=== PATIENT | female | born 1955 | race Caucasian/White ===

== ENCOUNTER 2017-01-08 18:04 | Emergency (ER) | payer MEDICAID ==
[2017-01-08 18:09] VITALS: TEMP 97.8; O2SAT 98
--- NOTE | 2017-01-08 18:17 | ED PDOC ---
HPI: General Adult Time Seen by Provider: 01/08/17 18:10 Chief Complaint (Nursing): Dizziness/Lightheaded Chief Complaint (Provider): Dizziness History Per: Patient History/Exam Limitations: no limitations Onset/Duration Of Symptoms: Days (330pm) Current Symptoms Are (Timing): Still Present Additional Complaint(s): Pt. with dizziness like room spinning and fuzziness when sitting still. Pt. has nausea, vomit as well, nonbloody. No headache, runny nose, weakness, numbness, tingles, abd pain, vision changes, weakness. No chest pain, dyspnea. NIH O. Not thrombolytic candidate as pt. nih 0 and no neuro focal decifits. NIHSS Stroke Scale - Date/Time Evaluation Performed Date Performed: 01/08/17 Time Performed: 18:20 When Was NIHSS Performed: Baseline - How Severe is the Stroke Level of Consciousness: 0=Alert LOC to Questions: 0=Both comments correct LOC to commands: 0=Obeys both correctly Best Gaze: 0=Normal Visual: 0=No visual loss Facial: 0=Normal Motor Arm - Left: 0=No drift Motor Arm - Right: 0=No drift Motor Leg - Left: 0=No drift Motor Leg - Right: 0=No drift Limb Ataxia: 0=Absent Sensory: 0=Normal Best Language: 0=No aphasia Dysarthia: 0=Normal articulation Extinction & Inattention (Neglect): 0=Normal, no object Score: 0 rTPA Inclusion/Exclusion - Refusal of Treatment Patient Refused Treatment: No - Inclusion Criteria for Altepase Patient is 18 years or Older: Yes The Clinical Diagnosis of Ischemic Stroke That is Causing a Potentially Disabling Neurological Deficit: No Time of Onset is Well Established to be Less Than 270 Minute Before Treatment Would Begin: Yes Risk/Benefit Discussed With Patient/Family Member Present: Yes Past Medical History Reviewed: Nursing Documentation, Vital Signs Vital Signs: Last Vital Signs Temp 97.8 F 01/08/17 18:05 Pulse 69 01/08/17 18:05 Resp 16 01/08/17 18:05 BP 190/102 H 01/08/17 18:05 Pulse Ox 98 01/08/17 18:22 - Medical History PMH: No Chronic Diseases - Surgical History Surgical History: No Surg Hx - Family History Family History: States: Unknown Family Hx - Living Arrangements Living Arrangements: With Family - Social History Current smoker - smoking cessation education provided: No Alcohol: None Drugs: Denies - Home Medications Home Medications: Ambulatory Orders Medication Instructions Recorded Naproxen [Naprosyn] 500 mg PO BID #20 tablet 06/22/15 - Allergies Allergies/Adverse Reactions: Allergies Allergy/AdvReac Type Severity Reaction Status Date / Time shellfish derived Allergy RASH Verified 06/22/15 11:41 nuts Allergy RASH Uncoded 06/22/15 11:41 Review of Systems ROS Statement: Except As Marked, All Systems Reviewed And Found Negative Gastrointestinal: Positive for: Nausea, Vomiting Neurological: Positive for: Dizziness Physical Exam - Reviewed Nursing Documentation Reviewed: Yes Vital Signs Reviewed: Yes - Physical Exam Appears: Positive for: Non-toxic, No Acute Distress Head Exam: Positive for: ATRAUMATIC, NORMAL INSPECTION, NORMOCEPHALIC Skin: Positive for: Normal Color, Warm, DRY Eye Exam: Positive for: EOMI, Normal appearance, PERRL ENT: Positive for: Normal ENT Inspection Neck: Positive for: Normal, Painless ROM Cardiovascular/Chest: Positive for: Regular Rate, Rhythm Respiratory: Positive for: CNT, Normal Breath Sounds Gastrointestinal/Abdominal: Positive for: Normal Exam, Bowel Sounds, Soft. Negative for: Tenderness Back: Positive for: Normal Inspection. Negative for: L CVA Tenderness, R CVA Tenderness Extremity: Positive for: Normal ROM. Negative for: Tenderness, Pedal Edema Neurologic/Psych: Positive for: Alert, primary care provider II-XII, Oriented, Cerebellar Tests ( intact). Negative for: Motor/Sensory Deficits, Aphasia, Facial Droop - ECG O2 Sat by Pulse Oximetry: 98 - Progress ED Course And Treament: 1822: Stable. Dr. Flower to take over care. Fu on labs and imaging. Disposition - Clinical Impression Clinical Impression: Dizziness - Patient ED Disposition Is Patient to be Admitted: Transfer of Care - Disposition Disposition: Transfer of Care Disposition Time: 18:22 Condition: STABLE Patient Signed Over To: Gallito Flower
[2017-01-08 18:37] VITALS: PULSE 94; RESP 24
[2017-01-08 19:19] LABS: BASO % 0.4 % (0.0-2.0); EOS # 0.1 K/uL (0.0-0.7); EOS % 1.5 % (0.0-4.0); HEMATOCRIT 41.7 % (34.0-47.0); LYMPH # 2.6 K/uL (1.0-4.3); LYMPH % 35.7 % (20.0-40.0); MEAN CELL VOLUME 88.3 fl (81.0-99.0); MEAN CORPUSCULAR HEMOGLOBIN 30.1 pg (27.0-31.0); MEAN CORPUSCULAR HGB CONC 34.1 g/dL (33.0-37.0); MEAN PLATELET VOLUME 7.7 fl (7.2-11.7); MONO # 0.4 K/uL (0.0-0.8); NEUT # 4.2 K/uL (1.8-7.0); NEUT % 56.4 % (50.0-75.0); NRBC % 0.1 % (0.0-0.0); RED CELL DISTRIBUTION WIDTH 13.1 % (11.5-14.5); WHITE BLOOD COUNT 7.4 K/uL (4.8-10.8)
--- NOTE | 2017-01-08 19:19 | ED PDOC ---
- Laboratory Results Result Diagrams: 01/08/17 18:28 01/08/17 18:28 - ECG O2 Sat by Pulse Oximetry: 98 Medical Decision Making Medical Decision Makin -Patient transferred to de by Dr. Foss. Pending labs, CT, and reevaluation [address] FINDINGS: Brain: Mild atrophy. No intracranial hemorrhage. No mass. Few scattered foci of decreased attenuation within periventricular/subcortical white matter. No definite edema. Ventricles: No hydrocephalus. Bones/joints: No acute fracture. Soft tissues: Unremarkable. Vasculature: Minimal atherosclerotic disease of intracranial arteries. Sinuses: Scattered minimal mucosal thickening of ethmoid sinuses. Mastoid air cells: No mastoid effusion. Orbits: Unremarkable as visualized. IMPRESSION: 1. Nonspecific white matter changes. Acute infarction may be CT occult within first 24 hours. If a focal deficit persists, consider followup CT or MRI for further evaluation. 2. Incidental/non-acute findings are described above. 2024 -CT report and labs reviewed, they show no significant abnormalities. Patient report improvement of symptoms and is stable for discharge. Diagnosis is vertigo. Condition improved Disposition - Clinical Impression Clinical Impression: Vertigo - POA Present On Arrival: None - Disposition Referrals: [facility] [Outside] Disposition: Routine/Home Disposition Time: 20:25 Condition: STABLE Prescriptions: Meclizine [Antivert] 25 mg PO Q6 PRN #16 tab PRN Reason: Dizziness Instructions: Vertigo (ED) Forms: [facility] (Djiboutian) Print Language: ESTONIAN
[2017-01-08 19:29] LABS: PARTIAL THROMBOPLASTIN TIME 25.6 Seconds (25.6-37.1)
[2017-01-08 19:59] LABS: BLOOD UREA NITROGEN 13 mg/dl (7-17); CHLORIDE 106 mmol/L (98-107); GFR AFRICAN-AMERICAN > 60; GLUCOSE,RANDOM 132 mg/dL (65-105); POTASSIUM 3.3 MMOL/L (3.6-5.0); SODIUM 143 mmol/l (132-148)
[2017-01-08 20:00] LABS: ALB/GLOB RATIO 1.3 (1.0-2.1); CALCIUM 9.2 mg/dL (8.4-10.2); CARBON DIOXIDE 24 mmol/L (22-30); TOTAL PROTEIN 7.7 G/DL (6.3-8.2)
[2017-01-08 20:01] LABS: ALKALINE PHOSPHATASE 118 U/L (38-126); ALT/SGPT 54 U/L (9-52); AST/SGOT 37 U/L (14-36); BILIRUBIN,TOTAL 0.5 mg/dl (0.2-1.3)
--- NOTE | 2017-01-08 20:09 | CT ---
EXAM: CT Head Without Intravenous Contrast CLINICAL HISTORY: 61 years old, female; Pain; Headache; Other: Shepherd's dizziness n v; Patient HX: HTN. Non-trauma TECHNIQUE: Axial computed tomography images of the head/brain without intravenous contrast. All CT scans at this facility use one or more dose reduction techniques, viz.: automated exposure control; ma/kV adjustment per patient size (including targeted exams where dose is matched to indication; i.e. head); or iterative reconstruction technique. Coronal and sagittal reformatted images were created and reviewed. COMPARISON: No relevant prior studies available. FINDINGS: Brain: Mild atrophy. No intracranial hemorrhage. No mass. Few scattered foci of decreased attenuation within periventricular/subcortical white matter. No definite edema. Ventricles: No hydrocephalus. Bones/joints: No acute fracture. Soft tissues: Unremarkable. Vasculature: Minimal atherosclerotic disease of intracranial arteries. Sinuses: Scattered minimal mucosal thickening of ethmoid sinuses. Mastoid air cells: No mastoid effusion. Orbits: Unremarkable as visualized. IMPRESSION: 1. Nonspecific white matter changes. Acute infarction may be CT occult within first 24 hours. If a focal deficit persists, consider followup CT or MRI for further evaluation. 2. Incidental/non-acute findings are described above.
[2017-01-08 20:36] VITALS: BP 147/104
--- NOTE | 2017-01-09 08:35 | CARD ---
APPROVED REPORT EKG Measurement Heart [id number] <Conclusion> Normal sinus rhythm Incomplete right bundle branch block Moderate voltage criteria for LVH, may be normal variant Borderline ECG
== END 2017-01-08 20:36 | disposition home or self-care (01) ==
LOC: H.ER 18:04
DX: R42 Dizziness and giddiness (principal); I10 Essential (primary) hypertension
CPT/HCPCS: 70450; 80053; 82948; 84484; 85025; 85610; 85730; 93005; 99285; J2405

== ENCOUNTER 2017-01-09 13:45 | Emergency (ER) | payer MEDICAID ==
[2017-01-09 14:28] VITALS: BP 147/96; PULSE 88; RESP 18; TEMP 97; O2SAT 97
--- NOTE | 2017-01-09 14:55 | ED PDOC ---
HPI: Hypertension/Hypotension Time Seen by Provider: 01/09/17 14:40 Chief Complaint (Nursing): High Blood Pressure Chief Complaint (Provider): High Blood Pressure History Per: Patient History/Exam Limitations: no limitations Onset/Duration Of Symptoms: Days (x2) Current Symptoms Are (Timing): Still Present Quality Of Symptoms: Asymptomatic Additional Complaint(s): Holli Ly is a 61 y/o female who presents to the ED for evaluation of high blood pressure. Blood pressure was 179/97 at home around 10AM this morning, systolic BP was 190 last night. Denies history of hypertension and states she has not been prescribed any medications for her blood pressure. Patient has an appointment with her PMD in 2 weeks. PMD: None Past Medical History Reviewed: Historical Data, Nursing Documentation, Vital Signs Vital Signs: Last Vital Signs Temp 97 F L 01/09/17 14:23 Pulse 88 01/09/17 14:23 Resp 18 01/09/17 14:23 BP 147/96 H 01/09/17 14:23 Pulse Ox 97 01/09/17 14:23 - Medical History PMH: No Chronic Diseases Denies: HTN - Surgical History Surgical History: Other surgeries: Cosmetic surgeries - Family History Family History: States: Unknown Family Hx - Social History Current smoker - smoking cessation education provided: No Alcohol: None Drugs: Denies - Home Medications Home Medications: Ambulatory Orders Medication Instructions Recorded Naproxen [Naprosyn] 500 mg PO BID #20 tablet 06/22/15 Meclizine [Antivert] 25 mg PO Q6 PRN #16 tab 01/08/17 hydroCHLOROthiazide [Hydrodiuril] 25 mg PO DAILY #14 tab 01/09/17 - Allergies Allergies/Adverse Reactions: Allergies Allergy/AdvReac Type Severity Reaction Status Date / Time shellfish derived Allergy RASH Verified 01/09/17 14:22 nuts Allergy RASH Uncoded 06/22/15 11:41 Review of Systems ROS Statement: Except As Marked, All Systems Reviewed And Found Negative Cardiovascular: Positive for: Other (High blood pressure). Negative for: Chest Pain, Palpitations Neurological: Negative for: Headache Physical Exam - Reviewed Nursing Documentation Reviewed: Yes Vital Signs Reviewed: Yes - Physical Exam Appears: Positive for: Well, Non-toxic, No Acute Distress Head Exam: Positive for: ATRAUMATIC, NORMAL INSPECTION, NORMOCEPHALIC Skin: Positive for: Normal Color, Warm, Dry Eye Exam: Positive for: Normal appearance Neck: Positive for: Normal Cardiovascular/Chest: Positive for: Regular Rate, Rhythm. Negative for: Murmur Respiratory: Positive for: Normal Breath Sounds. Negative for: Respiratory Distress Extremity: Positive for: Normal ROM. Negative for: Pedal Edema, Deformity Neurologic/Psych: Positive for: Alert, Oriented - ECG O2 Sat by Pulse Oximetry: 97 (RA) Pulse Ox Interpretation: Normal Medical Decision Making Medical Decision Making: Clinical Impression: Hypertension Upon provider evaluation patient is medically stable, and requires no further treatment in the ED at this time. Patient will be discharged home with Rx for hydrochlorothiazide. Counseling was provided and all questions were answered regarding diagnosis and need for follow up with PMD as scheduled. There is agreement to discharge plan. Return if symptoms persist or worsen. Scribe Attestation: Documented by Raquel Moody, acting as a scribe for Jennifer Martinez PA-C Provider Scribe Attestation: All medical record entries made by the Scribe were at my direction and personally dictated by me. I have reviewed the chart and agree that the record accurately reflects my personal performance of the history, physical exam, medical decision making, and the department course for this patient. I have also personally directed, reviewed, and agree with the discharge instructions and disposition. Disposition - Clinical Impression Clinical Impression: HTN (hypertension) - Patient ED Disposition Is Patient to be Admitted: No Counseled Patient/Family Regarding: Diagnosis, Need For Followup, Rx Given - Disposition Disposition: Routine/Home Disposition Time: 14:57 Condition: STABLE Prescriptions: hydroCHLOROthiazide [Hydrodiuril] 25 mg PO DAILY #14 tab Instructions: Hypertension (ED) Forms: [facility] (Mozambican)
== END 2017-01-09 15:01 | disposition home or self-care (01) ==
LOC: H.ER 13:45
DX: I10 Essential (primary) hypertension (principal)

== ENCOUNTER 2017-08-21 21:36 | Emergency (ER) | payer MEDICAID, OTHER ==
[2017-08-21 21:46] VITALS: BP 135/78; PULSE 85; RESP 18; TEMP 97.6; O2SAT 97
--- NOTE | 2017-08-21 22:02 | ED PDOC ---
HPI: Back Time Seen by Provider: 08/21/17 21:53 Chief Complaint (Nursing): Back Pain Chief Complaint (Provider): low back pain History Per: Patient Additional Complaint(s): 61-year-old female with history of back pain and sciatica presents with lower back pain exacerbation that started yesterday. Patient denies trauma or injury. She states she gets flareups of back pain from time to time. Pain does not radiate and patient denies bowel or bladder dysfunction. Patient took one tablet of Celebrex and Tylenol yesterday but these medications did not help. PMD: none Past Medical History Reviewed: Historical Data, Nursing Documentation, Vital Signs Vital Signs: Last Vital Signs Temp 97.6 F 08/21/17 21:44 Pulse 85 08/21/17 21:44 Resp 18 08/21/17 21:44 BP 135/78 08/21/17 21:44 Pulse Ox 97 08/21/17 21:44 - Medical History PMH: HTN - Surgical History Surgical History: - Family History Family History: States: No Known Family Hx - Living Arrangements Living Arrangements: With Family - Social History Current smoker - smoking cessation education provided: No Alcohol: None Drugs: Denies - Home Medications Home Medications: Ambulatory Orders Medication Instructions Recorded Naproxen [Naprosyn] 500 mg PO BID #20 tablet 06/22/15 Meclizine [Antivert] 25 mg PO Q6 PRN #16 tab 01/08/17 hydroCHLOROthiazide [Hydrodiuril] 25 mg PO DAILY #14 tab 01/09/17 Naproxen [Naprosyn] 500 mg PO BID #20 tab 08/21/17 - Allergies Allergies/Adverse Reactions: Allergies Allergy/AdvReac Type Severity Reaction Status Date / Time apple Allergy RASH Verified 08/21/17 21:44 paula Allergy RASH Verified 08/21/17 21:44 shellfish derived Allergy RASH Verified 01/09/17 14:22 nuts Allergy RASH Uncoded 06/22/15 11:41 Review of Systems ROS Statement: Except As Marked, All Systems Reviewed And Found Negative Constitutional: Negative for: Fever, Chills Cardiovascular: Negative for: Chest Pain Respiratory: Negative for: Cough Gastrointestinal: Negative for: Nausea, Vomiting Genitourinary Female: Negative for: Dysuria, Frequency, Incontinence, Hematuria Musculoskeletal: Positive for: Back Pain. Negative for: Leg Pain Neurological: Negative for: Weakness, Numbness Physical Exam - Reviewed Nursing Documentation Reviewed: Yes Vital Signs Reviewed: Yes - Physical Exam Appears: Positive for: Well, Non-toxic, No Acute Distress Skin: Negative for: Rash Eye Exam: Positive for: Normal appearance Cardiovascular/Chest: Positive for: Regular Rate, Rhythm Respiratory: Positive for: Normal Breath Sounds Gastrointestinal/Abdominal: Positive for: Soft. Negative for: Tenderness, Distended, Guarding, Rebound Back: Positive for: Vertebral Tenderness (Mild tenderness and muscle spasm across the lumbar region, no CVA tenderness bilaterally, negative bilateral straight leg raise, patient is able to heel and toe walk) Extremity: Positive for: Normal ROM Neurologic/Psych: Positive for: Alert, Oriented, Gait (steady) - ECG O2 Sat by Pulse Oximetry: 97 Pulse Ox Interpretation: Normal Medical Decision Making Medical Decision Making: Impression: Acute on chronic low back pain Plan: IM toradol Rx naprosyn given. Patient was referred to clinic for follow up. Disposition - Clinical Impression Clinical Impression: Back strain - Patient ED Disposition Is Patient to be Admitted: No Counseled Patient/Family Regarding: Diagnosis, Need For Followup, Rx Given - Disposition Referrals: [facility] [Outside] Disposition: Routine/Home Disposition Time: 22:13 Condition: STABLE Additional Instructions: Rest and avoid heavy lifting. Take prescription meds as directed as needed for pain. Follow-up with clinic in 2-3 days. Prescriptions: Naproxen [Naprosyn] 500 mg PO BID #20 tab Instructions: Low Back Pain in Adults, Muscle Strain (DC), Back Exercises
== END 2017-08-21 22:48 | disposition home or self-care (01) ==
LOC: H.ER 21:36
DX: M54.9 Dorsalgia, unspecified (principal); G89.29 Other chronic pain; I10 Essential (primary) hypertension
CPT/HCPCS: 96372; 99282; J1885

== ENCOUNTER 2017-09-27 07:29 | Emergency (ER) | payer OTHER ==
--- NOTE | 2017-09-27 08:54 | ED PDOC ---
Lower Extremity Pain/Injury Time Seen by Provider: 09/27/17 07:46 Chief Complaint (Nursing): Lower Extremity Problem/Injury Chief Complaint (Provider): knee pain History Per: Patient History/Exam Limitations: no limitations Onset/Duration Of Symptoms: Days (years) Additional Complaint(s): Pt. with pain to the left knee ongoing for years due to her arthritis. Pt. has had more pain for a few days so came to the Er. No new injury. No numbness, tingles, weakness. No calf pain. Did not take any meds for it. No chest pain , dyspnea. Past Medical History Reviewed: Nursing Documentation, Vital Signs Vital Signs: Last Vital Signs Temp 97.7 F 09/27/17 07:57 Pulse 101 H 09/27/17 07:57 Resp 16 09/27/17 07:57 BP 172/84 H 09/27/17 07:57 Pulse Ox 97 09/27/17 07:57 - Medical History PMH: HTN Other PMH: arthritis - Surgical History Surgical History: - Family History Family History: States: Unknown Family Hx - Home Medications Home Medications: Ambulatory Orders Medication Instructions Recorded Naproxen [Naprosyn] 500 mg PO BID #20 tablet 06/22/15 Meclizine [Antivert] 25 mg PO Q6 PRN #16 tab 01/08/17 hydroCHLOROthiazide [Hydrodiuril] 25 mg PO DAILY #14 tab 01/09/17 Naproxen [Naprosyn] 500 mg PO BID #20 tab 08/21/17 Ibuprofen [Motrin] 600 mg PO TID 7 Days tab 09/27/17 - Allergies Allergies/Adverse Reactions: Allergies Allergy/AdvReac Type Severity Reaction Status Date / Time apple Allergy RASH Verified 08/21/17 21:44 paula Allergy RASH Verified 08/21/17 21:44 shellfish derived Allergy RASH Verified 01/09/17 14:22 nuts Allergy RASH Uncoded 06/22/15 11:41 Review of Systems Constitutional: Negative for: Weakness Cardiovascular: Negative for: Chest Pain Respiratory: Negative for: Shortness of Breath Musculoskeletal: Positive for: Leg Pain (knee pain). Negative for: Shoulder Pain, Arm Pain, Back Pain Skin: Negative for: Rash Neurological: Negative for: Weakness, Numbness Physical Exam - Reviewed Nursing Documentation Reviewed: Yes Vital Signs Reviewed: Yes - Physical Exam Appears: Positive for: Non-toxic, No Acute Distress Head Exam: Positive for: ATRAUMATIC, NORMAL INSPECTION, NORMOCEPHALIC Skin: Positive for: Normal Color, Warm, DRY Neck: Positive for: Normal, Painless ROM Cardiovascular/Chest: Positive for: Regular Rate, Rhythm Respiratory: Positive for: CNT, Normal Breath Sounds Back: Positive for: Normal Inspection. Negative for: L CVA Tenderness, R CVA Tenderness Extremity: Positive for: Normal ROM, Tenderness (left knee), Other. Negative for: Pedal Edema, Calf Tenderness, Swelling Neurologic/Psych: Positive for: Alert, Oriented - ECG O2 Sat by Pulse Oximetry: 97 Pulse Ox Interpretation: Normal - Progress ED Course And Treament: 1030: Stable. AAOx3. Pain controlled. Ambulated with no issues. Disposition - Clinical Impression Clinical Impression: Knee pain - Disposition Referrals: [facility] [Outside] - 09/29/17 Disposition Time: 10:19 Condition: STABLE Additional Instructions: Return if not better in 3 days. Prescriptions: Ibuprofen [Motrin] 600 mg PO TID 7 Days tab Instructions: Chronic Knee Pain Forms: [facility] (Nicaraguan)
[2017-09-27 10:25] VITALS: BP 130/71; PULSE 70; RESP 18; TEMP 98.4
[2017-09-27 11:38] VITALS: O2SAT 97
== END 2017-09-27 10:22 | disposition home or self-care (01) ==
LOC: H.ER 07:29
DX: M25.562 Pain in left knee (principal); I10 Essential (primary) hypertension
CPT/HCPCS: 96372; 99284; J1885